=== PATIENT | female | born 1990 | race Caucasian/White ===

== ENCOUNTER 2019-03-22 06:04 | Outpatient (CLI) | payer BC ==
[~2019-03-22] VITALS: Ht 172 cm; Wt 72.7 kg
[2019-03-22] MEDS ORDERED: DESO1TAB70 PO (14:42)
[2019-03-22] MEDS ORDERED: SPIR25TA5 PO (14:42)
[2019-03-24] MEDS ORDERED: PANT40TA2 PO (11:34)
== END 2019-03-22 14:45 | disposition home or self-care (01) ==
LOC: PREOP 06:04
PROVIDERS: ATTEND Surgery
DX: Z01.818 Encounter for other preprocedural examination (principal)

== ENCOUNTER → 2022-10-07 | Outpatient (CLI) | payer BC ==
[~2022-10-07] MED LIST: DESO1TAB70 PO; DOCU-26 PO; FAMO20TA3 PO; HYDR-3817 PO; LACT1CAP74 PO; PANT40TA2 PO; PREN-8 PO; SPIR25TA5 PO
--- NOTE | 2022-10-07 11:10 | Diagnostic Imaging Report ---
PROCEDURE: US Gallbladder. TECHNIQUE: Multiple real-time grayscale images were obtained over the right upper quadrant in various projections. INDICATION: Right upper quadrant pain. Liver is normal in size 16 cm. Portal vein is patent and shows normal direction of flow. Multiple small gallstones are noted. There is no wall thickening. There is no biliary duct dilatation. Pancreas unremarkable. Aorta is nonaneurysmal. IVC is patent. Right kidney is without calculi or hydronephrosis. There is no ascites. IMPRESSION: Cholelithiasis without evidence of acute cholecystitis. Dictated by: Dictated on workstation # [id number]
== END ==
LOC: RAD 07:37
PROVIDERS: ATTEND Surgery
DX: K80.20 Calculus of gallbladder without cholecystitis without obstruction (principal)
CPT/HCPCS: 76705

== ENCOUNTER 2022-10-09 09:11 | Outpatient (CLI) | payer BC ==
[~2022-10-09] VITALS: Ht 172.7 cm; Wt 78.7 kg
[~2022-10-09 09:11] MED LIST changes: -DOCU-26 PO; -FAMO20TA3 PO; -HYDR-3817 PO; -LACT1CAP74 PO; -PREN-8 PO
[2022-10-09] MEDS ORDERED: PREN-8 PO (10:03)
[2022-10-09] MEDS ORDERED: LACT1CAP74 PO (10:03)
[2022-10-09] MEDS ORDERED: DOCU-26 PO (10:03)
[2022-10-09] MEDS ORDERED: FAMO20TA3 PO (10:03)
[2022-10-10] MEDS ORDERED: HYDR-3817 PO (10:10)
== END 2022-10-09 10:28 | disposition home or self-care (01) ==
LOC: PREOP 09:11
PROVIDERS: ATTEND Surgery
DX: Z01.818 Encounter for other preprocedural examination (principal)

== ENCOUNTER 2022-10-10 09:36 | Day surgery (SDC) | payer BC ==
[2022-10-10] VITALS (10 sets, daily range): BP systolic 112–126; BP diastolic 66–84
[~2022-10-10] VITALS: Ht 172 cm; Wt 78.7 kg
[~2022-10-10 09:36] MED LIST changes: +DOCU-26 PO; +FAMO20TA3 PO; +LACT1CAP74 PO; +PREN-8 PO
[2022-10-10] MEDS ORDERED: LACTATED RINGERS 1,000 ML IV PRN (09:45)
[2022-10-10] MEDS ORDERED: ceFAZolin INJECTION 2,000 MG in NS (IVPB) 50 ML IV ONE (09:45)
--- NOTE | 2022-10-10 10:08 | Progress Note-Pre Operative ---
Pre-Operative Progress Note Date H&P Reviewed: Oct 10, 2022 Time H&P Reviewed: 10:05 History & Physical: H&P Reviewed, Patient Examed, No changes noted Pre-Operative Diagnosis: Chronic calculous cholecystitis LOU IBARRA [employer] Oct 10, 2022 10:08
[2022-10-10] MEDS ORDERED: HYDR-3817 PO (10:10)
--- NOTE | 2022-10-10 10:11 | Discharge Inst-Surgical ---
D/C Lap Instructions-KIDO Reconcile Patient Problems Problems Reviewed?: Yes New, Converted, or Re-Newed RX: RX on Chart Follow Up Appt in 2 weeks Activity as tolerated No driving for 24 hours No driving while on pain medications Incentive Spirometry use every 2 hours while awake Regular Diet Symptoms to Report: Fever over 101 degree F, Nausea/Vomiting Infection Signs and Symptoms to report: Increased redness, Foul odor of wound, Increased drainage Bathing instructions: May shower Operative Area Clean/Dry; Keep incision clean/dry If any problems/questions: Contact your physician or go to Emergency Room LUO IBARRA APRN Oct 10, 2022 10:11
[2022-10-10] MEDS ORDERED: morphine INJ 10 MG/ML 1ML (SYR OR VIAL) IVP PRN (10:15)
[2022-10-10] MEDS ORDERED: ACETAMINOPHEN 325 MG TABLET PO PRN (10:15)
[2022-10-10] MEDS ORDERED: ONDANSETRON 4 MG/2 ML (SDV) Z0FRAN IVP PRN ×2 (10:15→12:30)
[2022-10-10] MEDS ORDERED: HYDROcodone/APAP 5 MG/325 MG (LORTAB) TAB PO ONE (10:15)
[2022-10-10] MEDS ORDERED: NEOSTIGMINE 3 MG/3 ML VIAL ONE (10:30)
[2022-10-10] MEDS ORDERED: ONDANSETRON 4 MG/2 ML (SDV) Z0FRAN ONE ×2 (10:30→12:31)
[2022-10-10] MEDS ORDERED: LIDOCAINE PF 2% 5 ML (XYLOCAINE) VIAL ONE (10:30)
[2022-10-10] MEDS ORDERED: GLYCOPYRROLATE 0.2 MG/ML (ROBINUL) 2 ML VIAL ONE (10:30)
[2022-10-10] MEDS ORDERED: proPOfol 200 MG/20 ML (DIPRIVAN) VIAL IV ONE (10:30)
[2022-10-10] MEDS ORDERED: MIDAZOLAM 2 MG/2 ML (VERSED) VIAL ONE (10:31)
[2022-10-10] MEDS ORDERED: fentaNYL INJ 100 MCG/2 ML AMP ONE (10:31)
[2022-10-10] MEDS ORDERED: ROCURONIUM 50 MG/5 ML (ZEMURON) VIAL IV ONE (10:31)
[2022-10-10] MEDS ORDERED: BUP/EPI 0.5% 1:200,000 (SENSORCAINE) 30 ML VIAL ONE (10:34)
[2022-10-10] MEDS ORDERED: BUP/EPI 0.5% 1:200,000 (SENSORCAINE) 30 ML VIAL INJ ONE (10:37)
--- NOTE | 2022-10-10 12:20 | Progress Note-Post Operative ---
Post-Operative Progess Note Surgeon (s)/Floor Steward/Stewardess (s) Surgeon LISA DAVIS MD Floor Steward/Stewardess: heydi chavez [employer]IST Pre-Operative Diagnosis Chronic calculous cholecystitis Post-Operative Diagnosis same Procedure & Operative Findings Date of Procedure 10/10/22 Procedure Performed/Findings laparoscopic cholecystectomy Anesthesia Type get Estimated Blood Loss Estimated blood loss (mL): minimal Specimens/Packing Specimens Removed gallbladder LISA DAVIS MD Oct 10, 2022 12:20
[2022-10-10] MEDS ORDERED: HYDROmorphone 2 MG/ML VIAL (DILAUDID) IV ONE (12:30)
[2022-10-10] MEDS ORDERED: morphine INJ 10 MG/ML 1ML (SYR OR VIAL) IVP ONE (12:30)
[2022-10-10] MEDS ORDERED: SEVOFLURANE (ULTANE) 15 ML INHAL SOLN ONE (12:30)
[2022-10-10] MEDS ORDERED: morphine INJ 10 MG/ML 1ML (SYR OR VIAL) ONE (12:31)
[2022-10-10] MEDS ORDERED: HYDROmorphone 2 MG/ML VIAL (DILAUDID) ONE (12:42)
--- NOTE | 2022-10-10 14:26 | Anesthesia-General Post-Op ---
General Patient Condition Mental Status/LOC: Same as Preop Cardiovascular: Satisfactory Nausea/Vomiting: Absent Respiratory: Satisfactory Pain: Controlled Complications: Absent Post Op Complications Complications None Follow Up Care/Instructions Patient Instructions None needed. Anesthesia/Patient Condition Patient Condition Patient was seen in PACU and she was awake and doing well, no complaints, stable vital signs, no apparent adverse anesthesia problems. No complications reported per nursing. DOROTEO CONTRERAS DO Oct 10, 2022 14:26
--- NOTE | 2022-10-10 19:20 | OPERATIVE REPORT ---
DATE OF SERVICE: 10/10/2022 ATTENDING PRIMARY CARE PHYSICIAN:. Dr. Radha Miranda. PREOPERATIVE DIAGNOSIS: Symptomatic chronic calculous cholecystitis. POSTOPERATIVE DIAGNOSIS: Symptomatic chronic calculous cholecystitis. PROCEDURE: Laparoscopic cholecystectomy. SURGEON: Fly Wu MD [employer] COORDINATOR: Dru Cain APRN ANESTHESIA: General endotracheal. ESTIMATED BLOOD LOSS: Minimal. FINDINGS: Multiple small gallstones. DISPOSITION: The patient tolerated the procedure well. INDICATIONS: The patient is a 32-year-old female known to us. She has had a history of gastroesophageal reflux disease and also biopsy confirmed Muniz's esophagus. She went follow up EGDs and these did appear to be normal. She was also found to have a posterior anal fissure, which was treated conservatively and this did improve over time. She reports that she has had crampy abdominal pain, usually after some meals, which was initially mild; however, during her and after she has had more severe and more frequent episodes of pain in the right upper abdominal quadrant after eating meals. An ultrasound was performed, which did show gallstones. DESCRIPTION OF PROCEDURE: The patient was brought to the operating room, laid supine on the table. After adequate IV pain and sedative medications and general endotracheal intubation, the abdomen was prepped and draped in standard surgical fashion. A 0.5% Marcaine with epinephrine was then used to anesthetize the overlying skin in the left upper abdominal quadrant and transverse skin incision made using #15 blade. An 0 silk suture was applied to the medial aspect of the incision for retraction and Veress needle inserted with a low opening pressure of 0 mmHg. The abdomen was then insufflated to 15 mmHg pressure. The Veress needle removed and a 5 mm XL trocar placed followed by a 5 mm 45-degree angle laparoscope visualizing the peritoneal cavity. A 4-quadrant abdominal exploration was performed. There was mild gallbladder wall distention, no gallbladder wall thickening. Under direct visualization, we then proceeded to place a supraumbilical 10 mm port after the skin and peritoneal lining were anesthetized using 0.5% Marcaine with epinephrine and a transverse skin incision made using a #15 blade. In a similar manner, a right upper abdominal quadrant 5 mm port was placed. The patient was then placed in reverse Trendelenburg position as well as plane right side up, left side down. Fundus of the gallbladder was then retracted anteriorly and superiorly. The hepatoduodenal ligament was then dissected bluntly as well as using electrocautery using the hook instrument as well as the [place] dissector. The entire critical view of safety was identified including the triangle of Calot as well as the cystic duct and artery as the only 2 structures going into the gallbladder as well as the cystic plate behind the proximal gallbladder. A timeout was then taken and the cystic duct and artery were then clipped proximally and distally and cut with EndoShears. The gallbladder was then dissected off of the liver bed using electrocautery on the hook instrument with visualization of good hemostasis as well as no leaking ducts of Luschka. The gallbladder was removed through the 10 mm port site using an EndoCatch bag. The patient tolerated the procedure well. We will start IV normal pain medication as well as a clear liquid diet. Once she is tolerating clears, has good pain control with oral pain medications, ambulating well, we will discharge her home where she will be instructed to do no heavy lifting or exertion for the next 2 weeks. Job ID: [id number] DocumentID: [id number] Dictated Date: 10/10/2022 12:33:54 Tie Buyer Date: 10/10/2022 19:18:00 Dictated By: FLY WU MD
== END 2022-10-10 14:14 | disposition home or self-care (01) ==
LOC: SDC 09:36
PROVIDERS: ATTEND Surgery
DX: K80.10 Calculus of gallbladder with chronic cholecystitis without obstruction (principal); Z28.310 Unvaccinated for COVID-19
CPT/HCPCS: 84703